=== PATIENT | male | born 1945 | race Caucasian/White ===

== ENCOUNTER 2017-05-16 14:53 | Inpatient (IN) | payer MEDICARE, OTHER ==
[~2017-05-16 14:53] MED LIST: ASPIRIN 325 MG TABLET PO SCH
[2017-05-16] MEDS ORDERED: NORMAL SALINE 1000 ML 1,000 ML IV ONE (15:16)
[2017-05-16 15:27] LABS: ABSOLUTE BASOPHILS # (AUTO) 0.1 10^3/uL (0.0-0.2); ABSOLUTE EOSINOPHILS # (AUTO) 0.1 10^3/uL (0.0-0.6); ABSOLUTE LYMPHOCYTES (AUTO) 2.5 10^3/uL (0.5-4.7); ABSOLUTE MONOCYTES (AUTO) 0.9 10^3/uL (0.1-1.4); ABSOLUTE NEUT (AUTO) 3.5 10^3/uL (1.7-8.2); BASOPHILS % (AUTO) 0.9 % (0-2); EOSINOPHILS % (AUTO) 1.9 % (0-6); HEMATOCRIT 38.6 % (37.9-51.0); HEMOGLOBIN 13.5 g/dL (13.5-17.0); HGB HCT DIFFERENCE 1.9; LYMPHOCYTES % (AUTO) 35.3 % (13-45); MEAN CORPUSCULAR HEMOGLOBIN 32.9 pg (27.0-33.4); MEAN CORPUSCULAR HGB CONC 34.9 g/dL (32.0-36.0); MEAN CORPUSCULAR VOLUME 94 fl (80-97); MONOCYTES % (AUTO) 13.1 % (3-13); RED BLOOD COUNT 4.09 10^6/uL (4.35-5.55); RED CELL DISTRIBUTION WIDTH 13.5 % (11.5-14.0); SEGMENTED NEUTROPHILS % (AUTO) 48.8 % (42-78); WHITE BLOOD COUNT 7.1 10^3/uL (4.0-10.5)
[2017-05-16 15:32] LABS: PROTHROMBIN TIME 12.5 SEC (11.4-15.4)
[2017-05-16 15:33] LABS: PARTIAL THROMBOPLASTIN TIME 30.8 SEC (23.5-35.8)
[2017-05-16] MEDS ORDERED: LORAZEPAM INJ 2 MG/1 ML VIAL IV ONE (15:37)
--- NOTE | 2017-05-16 15:40 | ER Document Report ---
ED General - General Chief Complaint: Dizziness Stated Complaint: DIZZINESS Time Seen by Provider: 05/16/17 15:10 Mode of Arrival: Ambulatory Information source: Patient Notes: 71-year-old male presents with sudden episode of dizziness tingling all throughout his body. Patient notes headache denies any fevers or chills denies any nausea vomiting or diarrhea there was an episode where patient laid himself down to the ground because he does not feel well TRAVEL OUTSIDE OF THE [place] IN LAST 30 DAYS: No - HPI Onset: Just prior to arrival Onset/Duration: Sudden Quality of pain: Achy Severity: Mild Pain Level: 1 Associated symptoms: Headache, Weakness Exacerbated by: Denies Relieved by: Denies Similar symptoms previously: No Recently seen / treated by doctor: No - Related Data Allergies/Adverse Reactions: No Known Allergies Allergy (Verified 05/16/17 14:57) Past Medical History - Social History Smoking Status: Never Smoker Cigarette use (# per day): No Chew tobacco use (# tins/day): No Smoking Education Provided: No Family History: Reviewed & Not Pertinent Musculoskeltal Medical History: Reports Hx Arthritis Past Surgical History: Reports: Hx Orthopedic Surgery - BL knees, Hx Tonsillectomy Review of Systems - Review of Systems Notes: REVIEW OF SYSTEMS: CONSTITUTIONAL : Denies fever, chills, or sweats. Denies recent illness. EENT: Denies eye, ear, throat, or mouth pain or symptoms. Denies nasal or sinus congestion or discharge. Denies throat, tongue, or mouth swelling or difficulty swallowing. CARDIOVASCULAR: Denies chest pain. Denies palpitations or racing or irregular heart beat. Denies ankle edema. RESPIRATORY: Denies cough, cold, or chest congestion. Denies shortness of breath, difficulty breathing, or wheezing. GASTROINTESTINAL: Denies abdominal pain or distention. Denies nausea, vomiting , or diarrhea. Denies blood in vomitus, stools, or per rectum. Denies black, tarry stools. Denies constipation. GENITOURINARY: Denies difficulty urinating, painful urination, burning, frequency, blood in urine, or discharge. MUSCULOSKELETAL: Denies back or neck pain or stiffness. Denies joint pain or swelling. SKIN: Denies rash, lesions or sores. HEMATOLOGIC : Denies easy bruising or bleeding. LYMPHATIC: Denies swollen, enlarged glands. NEUROLOGICAL: Admits to dizziness PSYCHIATRIC: Denies anxiety or stress. Denies depression, suicidal ideation, or homicidal ideation. ALL OTHER SYSTEMS REVIEWED AND NEGATIVE. Dictation was performed using [employer] voice recognition software PHYSICAL EXAMINATION: GENERAL: Well-appearing, well-nourished and in no acute distress. HEAD: Atraumatic, normocephalic. EYES: Pupils equal round and reactive to light, extraocular movements intact, sclera anicteric, conjunctiva are normal. ENT: Nares patent, oropharynx clear without exudates. Moist mucous membranes. NECK: Normal range of motion, supple without lymphadenopathy LUNGS: Breath sounds clear to auscultation bilaterally and equal. No wheezes rales or rhonchi. HEART: Tachycardic ABDOMEN: Soft, nontender, nondistended abdomen. No guarding, no rebound. No masses appreciated. Musculoskeletal: Normal range of motion, no pitting or edema. No cyanosis. NEUROLOGICAL: Cranial nerves grossly intact. Normal speech, normal gait. Normal sensory, motor exams PSYCH: Normal mood, normal affect. SKIN: Warm, Dry, normal turgor, no rashes or lesions noted. Physical Exam - Vital signs Vitals: Pulse Resp BP Pulse Ox 126 H 18 109/67 98 05/16/17 14:57 05/16/17 14:57 05/16/17 14:57 05/16/17 14:57 Course - Re-evaluation Re-evalutation: 05/16/17 15:39 Patient admits to subjective paresthesia all throughout his body, he is noted to be tachycardic upon arrival emergency T lab work ordered 05/16/17 22:40 Patient had imaging performed which noted no significant abnormality, however continued to have paresthesia as well as tachycardia, therefore I will admit the patient to the hospitalist service for further evaluation and care - Vital Signs Vital signs: Temp Pulse Resp BP Pulse Ox 98.2 F 66 18 118/75 98 05/16/17 21:34 05/16/17 21:34 05/16/17 21:01 05/16/17 21:34 05/16/17 21:34 - Laboratory Result Diagrams: 05/16/17 15:17 05/16/17 15:17 Laboratory results interpreted by me: 05/16/17 05/16/17 15:17 15:17 RBC 4.09 L Monocytes % 13.1 H Carbon Dioxide 21 L Creatine Kinase 47 L - Diagnostic Test Radiology reviewed: Image reviewed, Reports reviewed Discharge - Discharge Clinical Impression: Dizziness, Tachycardia, Paresthesia Condition: Stable Disposition: ADMITTED OBSERVATION Admitting Provider: Hospitalist Unit Admitted: [facility]
[2017-05-16 15:43] LABS: ALANINE AMINOTRANSFERASE 31 U/L (21-72); ALBUMIN 4.3 g/dL (3.5-5.0); ALKALINE PHOSPHATASE 111 U/L (38-126); ANION GAP 15 (5-19); ASPARTATE AMINO TRANSFERASE 22 U/L (17-59); BILIRUBIN,DIRECT 0.4 mg/dL (0.0-0.4); BILIRUBIN,TOTAL 1.2 mg/dL (0.2-1.3); BLOOD UREA NITROGEN 13 mg/dL (7-20); CALCIUM 9.9 mg/dL (8.4-10.2); CARBON DIOXIDE 21 mmol/L (22-30); CHLORIDE 103 mmol/L (98-107); CREATINE KINASE 47 U/L (55-170); CREATININE RESULT 0.97 mg/dL (0.52-1.25); GLUCOSE 109 mg/dL (75-110); POTASSIUM 3.8 mmol/L (3.6-5.0); TOTAL PROTEIN 6.7 g/dL (6.3-8.2)
--- NOTE | 2017-05-16 15:46 | EKG REPORT ---
SEVERITY:- ABNORMAL ECG - JUNCTIONAL TACHYCARDIA BORDERLINE ST DEPRESSION, DIFFUSE LEADS BORDERLINE PROLONGED QT INTERVAL : Confirmed by: Avelina Friedman MD 16-May-2017 15:45:27
--- NOTE | 2017-05-16 15:49 | RADIOLOGY REPORT (SQ) ---
EXAM DESCRIPTION: CHEST SINGLE VIEW COMPLETED DATE/TIME: 05/16/2017 3:41 pm REASON FOR STUDY: dizzy COMPARISON: None. EXAM PARAMETERS: NUMBER OF VIEWS: One view. TECHNIQUE: Single frontal radiographic view of the chest acquired. RADIATION DOSE: NA LIMITATIONS: None. FINDINGS: LUNGS AND PLEURA: No opacities, masses or pneumothorax. No pleural effusion. MEDIASTINUM AND HILAR STRUCTURES: No masses. Contour normal. HEART AND VASCULAR STRUCTURES: Heart normal in size. Normal vasculature. BONES: No acute findings. HARDWARE: None in the chest. OTHER: No other significant finding. IMPRESSION: NO ACUTE RADIOGRAPHIC FINDING IN THE CHEST. TECHNICAL DOCUMENTATION: JOB ID: [id number] [employer]- All Rights Reserved
--- NOTE | 2017-05-16 15:55 | RADIOLOGY REPORT (SQ) ---
EXAM DESCRIPTION: CT HEAD WITHOUT COMPLETED DATE/TIME: 05/16/2017 3:45 pm REASON FOR STUDY: dizzy COMPARISON: None. TECHNIQUE: Axial images acquired through the brain without intravenous contrast. Images reviewed wi th bone, brain and subdural windows. Images stored on PACS. All CT scanners at this facility use dose modulation, iterative reconstruction, and/or weight based d osing when appropriate to reduce radiation dose to as low as reasonably achievable (ALARA). [facility]: Dose Right [facility]: CareDose [facility]: Dose Right [facility]: Teradose 4D [facility]: Emotify RADIATION DOSE: CT Rad equipment meets quality standard of care and radiation dose reduction techniq ues were employed. CTDIvol: 64.6 mGy. DLP: 1163 mGy-cm. mGy. LIMITATIONS: None. FINDINGS: VENTRICLES: Normal size and contour. CEREBRUM: No masses. No hemorrhage. No midline shift. No evidence for acute infarction. Normal gra y/white matter differentiation. No areas of low density in the white matter. CEREBELLUM: No masses. No hemorrhage. No alteration of density. No evidence for acute infarction. EXTRAAXIAL SPACES: No fluid collections. No masses. ORBITS AND GLOBE: No intra- or extraconal masses. Normal contour of globe without masses. CALVARIUM: No fracture. PARANASAL SINUSES: No fluid or mucosal thickening. SOFT TISSUES: No mass or hematoma. OTHER: No other significant finding. IMPRESSION: NORMAL BRAIN CT WITHOUT CONTRAST. EVIDENCE OF ACUTE STROKE: NO. COMMENT: Quality ID # 436: Final reports with documentation of one or more dose reduction techniques (e.g., Automated exposure control, adjustment of the mA and/or kV according to patient size, use of iterative reconstruction technique) TECHNICAL DOCUMENTATION: JOB ID: [id number]- All Rights Reserved
[2017-05-16] MEDS ORDERED: ONDANSETRON HCL INJ/PF 4 MG/2 ML SDV IV ONE (15:57)
[2017-05-16 16:00] LABS: TROPONIN I < 0.012 ng/mL
--- NOTE | 2017-05-16 17:56 | RADIOLOGY REPORT (SQ) ---
EXAM DESCRIPTION: CTA CHEST COMPLETED DATE/TIME: 05/16/2017 5:35 pm REASON FOR STUDY: tachycardia, hypoemia COMPARISON: Chest film 05/16/2017 TECHNIQUE: CT scan of the chest performed using helical scanning technique with dynamic intravenous contrast injection. Images reviewed with lung, soft tissue and bone windows. Reconstructed coronal and sagittal MPR images reviewed. Additional 3 dimensional post-processing performed to develop Maximal Intensity Projection images (IL P). All images stored on PACS. All CT scanners at this facility use dose modulation, iterative reconstruction, and/or weight based d osing when appropriate to reduce radiation dose to as low as reasonably achievable (ALARA). [facility]: Dose Right [facility]: CareDose [facility]: Dose Right [facility]: Teradose 4D [facility]: [employer] CONTRAST TYPE AND DOSE: contrast/concentration: Isovue 370.00 mg/ml; Total Contrast Delivered: 62.0 ml; Total Saline Delivered: 70.0 ml Contrast bolus optimized for the thoracic aorta. RENAL FUNCTION: Creatinine 0.97 RADIATION DOSE: CT Rad equipment meets quality standard of care and radiation dose reduction techniq ues were employed. CTDIvol: 14.0 - 17.9 mGy. DLP: 2063 mGy-cm. . LIMITATIONS: None. FINDINGS: LUNGS AND PLEURA: Minimal bandlike bibasilar atelectasis. No fluffy alveolar infiltrates worrisome for edema or pneumonia. No pleural effusions. No pneumothorax. AORTA AND GREAT VESSELS: No aneurysm. No thoracic aortic aneurysm or dissection. HEART: No pericardial effusion. No significant coronary artery calcifications. PULMONARY ARTERIES: Contrast bolus not optimized for the pulmonary arteries. HILAR AND MEDIASTINAL STRUCTURES: No identified masses or abnormal nodes. Small hiatal hernia with f luid throughout the esophagus, mild esophageal wall thickening, likely due to reflux HARDWARE: None in the chest. UPPER ABDOMEN: No significant findings. Limited exam. THYROID AND OTHER SOFT TISSUES: No masses. No adenopathy. BONES: No acute or significant finding. 3D MIPS: Confirm above findings. OTHER: No other significant finding. IMPRESSION: NORMAL CTA OF THE CHEST. NO THORACIC AORTA ANEURYSM OR DISSECTION COMMENT: Quality ID # 436: Final reports with documentation of one or more dose reduction techniques (e.g., Automated exposure control, adjustment of the mA and/or kV according to patient size, use of iterative reconstruction technique) TECHNICAL DOCUMENTATION: JOB ID: [id number] [employer]- All Rights Reserved
--- NOTE | 2017-05-16 18:02 | RADIOLOGY REPORT (SQ) ---
EXAM DESCRIPTION: CTA ABDOMEN/PELVIS W WO COMPLETED DATE/TIME: 05/16/2017 5:35 pm REASON FOR STUDY: tachycardia, hypoemia COMPARISON: CT angio chest same date Chest films same date TECHNIQUE: CT scan of the abdominal aorta extending to the bilateral common femoral arteries perform ed with intravenous contrast using helical scanning technique with dynamic intravenous contrast injec tion. No oral contrast Images reviewed with lung, soft tissue, and bone windows. Reconstructed coronal and sagittal MPR imag es reviewed. All images stored on PACS. Advanced 3D imaging as volume rendering, MIPS, SSD performed? yes All CT scanners at this facility use dose modulation, iterative reconstruction, and/or weight based d osing when appropriate to reduce radiation dose to as low as reasonably achievable (ALARA). [facility]: Dose Right [facility]: CareDose [facility]: Dose Right [facility]: Teradose 4D [facility]: [employer] CONTRAST TYPE AND DOSE: 62 mL Isovue 370- low osmolar. RENAL FUNCTION: Creatinine 0.97 LIMITATIONS: None. FINDINGS: AORTA AND VESSELS: No aneurysm. No dissection. Renal arteries, SMA, celiac without stenosi s. Bilateral common iliac arteries, external iliac artery, common femoral arteries are widely patent . LUNG BASES: Small hiatal hernia. No nodules or infiltrates. LIVER: Normal size. No masses or dilated ducts. SPLEEN: Normal size. No focal lesions. PANCREAS: No masses. No significant calcifications. No adjacent inflammation or peripancreatic fluid collections. Pancreatic duct not dilated. GALLBLADDER: No identified stones by CT criteria. No inflammatory changes to suggest cholecystitis. ADRENAL GLANDS: No significant masses or asymmetry. RIGHT KIDNEY AND URETER: No mass, calculi or urinary tract obstruction. 2.7 cm right midpole renal c ortical cyst LEFT KIDNEY AND URETER: No mass, calculi or urinary tract obstruction. RETROPERITONEUM: No retroperitoneal adenopathy, hemorrhage or masses. BOWEL AND PERITONEAL CAVITY: No masses or inflammatory changes. No free fluid or peritoneal masses. Moderate stool throughout the colon. APPENDIX: Normal. ABDOMINAL WALL: No masses. No hernias. BONY STRUCTURES: Lower lumbar degenerative disc changes, 25% anterolisthesis of L5 over S1 from spond ylolysis PELVIS: No other significant finding. No adenopathy. No free fluid. Bladder unremarkable 3-D IMAGING: Confirms the above findings. IMPRESSION: NO ABDOMINAL AORTIC ANEURYSM, DISSECTION OR SIGNIFICANT STENOSIS. NO SIGNIFICANT FINDING S IN THE ABDOMEN. TECHNICAL DOCUMENTATION: JOB ID: [id number] Quality ID # [id number]: Final reports with documentation of one or more dose reduction techniques (e.g., Au tomated exposure control, adjustment of the mA and/or kV according to patient size, use of iterative reconstruction technique) 2010 [employer]- All Rights Reserved
[2017-05-16] MEDS ORDERED: ONDANSETRON 4 MG TAB.RAPDIS PO PRN (18:14)
--- NOTE | 2017-05-16 19:43 | HISTORY AND PHYSICAL E ---
History and Physical NAME: DONNELL NIEVES : 1945 AGE: 71Y ADMITTED: 05/16/2017 ROOM: ED20 CHIEF COMPLAINT: Dizziness. HISTORY OF THE PRESENT ILLNESS: The patient is a pleasant 71-year-old male who does not have any past medical history of any problem. The patient came to the emergency room today after he had a dizzy spell while he was in the kitchen. He did not pass out and following that he had numbness in his face. Denies any chest pain. He has some shortness of breath and nausea, but there is no vomiting. He had ringing in his ear, in the right ear, and he had episode of dizzy spell in the past but he did not come to the emergency room. He said he frequency but this last one it lasted longer, lasting around 20 minutes. There are no aggravating or alleviating factors. When he arrived to the emergency room his heart rate is in the 130s. An EKG showed junctional rhythm but cardiac exam was unremarkable. His blood pressure was relatively low it was 90 systolic. He is not on any medications other than Claritin. There is not any previous history of coronary artery disease or stroke. No history of ear infection. No difficulty swallowing. No paroxysmal nocturnal dyspnea or orthopnea, no edema, no fever, no chills. REVIEW OF SYSTEMS: Twelve systems are reviewed and negative except for the History of the Present Illness. PAST MEDICAL HISTORY: None. PAST SURGICAL HISTORY: None. MEDICATION: Claritin. ALLERGIES: No allergy to medication. FAMILY HISTORY: There is no family history of coronary artery disease or stroke. SOCIAL HISTORY: He never drank or smoked. He is and lives with his , Kirsten. PHYSICAL EXAMINATION: GENERAL: The patient looks well, not in distress, well-nourished. VITAL SIGNS: Blood pressure is 100/75, saturation was 100%, respiratory 12, heart rate is 89, afebrile. His heart rate was 126-130, now it has come back to 89. HEENT: Head is normocephalic, atraumatic. Pupils are round and reactive to light and accommodation bilaterally. Extraocular movements are intact. Ears: Tympanic membranes are intact. No discharge from the ears. No discharge from the nose. NECK: Supple. No increased JVD, no thyromegaly, and no lymphadenopathy. CARDIOVASCULAR: Regular rate, average. No murmur, no gallop. CHEST: No deformity, good air entry bilaterally. No wheezing, no crackles. ABDOMEN: No scar, no tenderness. Bowel sounds is active. No organomegaly. MUSCULOSKELETAL: No joint deformity or swelling. SKIN: There is no rash. VASCULAR: Peripheral arteries are palpable. NEUROLOGIC: The patient is awake, alert, oriented to time, place, and person. Cranial nerves are grossly intact from II-XII. HEMATOLOGIC/LYMPHOCYTIC: No anemia, no easy bruising. LABORATORY DATA: White blood cells 7.1, hemoglobin 15.5. Carbon dioxide 21, sodium 139, potassium 3.8. DIAGNOSTIC STUDIES: EKG; junctional rhythm. IMAGING STUDIES: CT scan of the head was normal. ASSESSMENT: 1. Dizziness. Differential diagnosis TIA versus cardiovascular event. 2. Abnormal EKG. EKG showed a junctional rhythm. 3. Hypotension. 4. Dehydration. 5. Mild metabolic acidosis. PLAN: We will admit the patient to telemetry, start him on IV fluids to increase his blood pressure. We will give him D5 normal saline at 125 mL per hour, aspirin 325 mg daily. We will get MRI of the brain, carotid ultrasound, echocardiogram, 3 sets of cardiac enzymes, lipid profile in the morning. Consult cardiology. EKG in the morning. CODE STATUS: Full code. TIME SPENT: One hour. DICTATING PHYSICIAN: WILLIAMS HANNON M.D. [id number] PHY#: [id number] ID: [id number] JOB#: [id number] ACCT: [id number] cc:WILLIAMS HANNON M.D. >
--- NOTE | 2017-05-16 20:31 | RADIOLOGY REPORT (SQ) ---
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 Images stored on PACS. CONTRAST TYPE AND DOSE: 15 mL Multihance. RENAL FUNCTION: GFR > 60. LIMITATIONS: None. FINDINGS: ANATOMY: No anomalies. Normal vascular flow voids. Pituitary fossa normal. CSF SPACES: Normal in size and contour. No hemorrhage. CEREBRUM: Sulci and gyri normal in size and contour. Normal white matter signal on FLAIR imaging. No evidence of hemorrhage, mass, or extraaxial fluid collection. No abnormal enhancement post contrast. POSTERIOR FOSSA: No signal alteration. No hemorrhage. No edema, masses, or mass effect. Internal reymundo tory canals, cerebellopontine angles, mastoids normal. No enhancing lesions. No abnormal enhancement post contrast. DIFFUSION IMAGING: Negative for acute or subacute infarction. ORBITS: No masses. Globes normal. PARANASAL SINUSES: No fluid levels. Mucosa normal. OTHER: No other significant finding. IMPRESSION: NORMAL MRI OF THE BRAIN WITHOUT AND WITH INTRAVENOUS GADOLINIUM CONTRAST. EVIDENCE OF ACUTE STROKE: NO. TECHNICAL DOCUMENTATION: JOB ID: [id number] [employer]- All Rights Reserved
[2017-05-16] MEDS: FAMOTIDINE 20 MG TABLET PO SCH (23:14)
[2017-05-16] MEDS ORDERED: ASPIRIN 325 MG TABLET PO ONE (23:15)
[2017-05-16] MEDS: DEXTROSE 5%-NORMAL SALINE 1,000 ML IV PRN (23:15)
[2017-05-17 03:42] LABS: ABSOLUTE EOSINOPHILS # (AUTO) 0.1 10^3/uL (0.0-0.6); ABSOLUTE MONOCYTES (AUTO) 0.7 10^3/uL (0.1-1.4); ABSOLUTE NEUT (AUTO) 2.1 10^3/uL (1.7-8.2); BASOPHILS % (AUTO) 0.7 % (0-2); HEMATOCRIT 30.9 % (37.9-51.0); HGB HCT DIFFERENCE 2.1; LYMPHOCYTES % (AUTO) 41.9 % (13-45); MEAN CORPUSCULAR HEMOGLOBIN 33.7 pg (27.0-33.4); MEAN CORPUSCULAR HGB CONC 35.8 g/dL (32.0-36.0); MEAN CORPUSCULAR VOLUME 94 fl (80-97); MONOCYTES % (AUTO) 13.5 % (3-13); RED BLOOD COUNT 3.27 10^6/uL (4.35-5.55); RED CELL DISTRIBUTION WIDTH 13.3 % (11.5-14.0); SEGMENTED NEUTROPHILS % (AUTO) 41.9 % (42-78); WHITE BLOOD COUNT 4.9 10^3/uL (4.0-10.5)
[2017-05-17 03:49] LABS: ALANINE AMINOTRANSFERASE 30 U/L (21-72); ALBUMIN 3.2 g/dL (3.5-5.0); ALKALINE PHOSPHATASE 72 U/L (38-126); ANION GAP 8 (5-19); ASPARTATE AMINO TRANSFERASE 18 U/L (17-59); BILIRUBIN,DIRECT 0.3 mg/dL (0.0-0.4); BILIRUBIN,TOTAL 0.8 mg/dL (0.2-1.3); BLOOD UREA NITROGEN 17 mg/dL (7-20); CALCIUM 8.5 mg/dL (8.4-10.2); CARBON DIOXIDE 26 mmol/L (22-30); CHLORIDE 107 mmol/L (98-107); CHOLESTEROL 152.78 mg/dL (0-200); CREATINE KINASE 31 U/L (55-170); CREATININE RESULT 0.86 mg/dL (0.52-1.25); Direct HDL 54 mg/dL (>40); GLUCOSE 107 mg/dL (75-110); MAGNESIUM 1.9 mg/dL (1.6-2.3); POTASSIUM 3.9 mmol/L (3.6-5.0); TOTAL PROTEIN 5.4 g/dL (6.3-8.2); TRIGLYCERIDES 54 mg/dL (<150)
[2017-05-17 04:01] LABS: DIRECT LDL 85 mg/dL (<100)
[2017-05-17 04:12] LABS: FREE T3 2.74 pg/mL (2.77-5.27)
[2017-05-17 04:25] LABS: THYROID STIMULATING HORMONE 1.7 uIU/mL (0.47-4.68)
[2017-05-17] MEDS: DEXTROSE 5%-NORMAL SALINE 1,000 ML IV PRN (08:34)
[2017-05-17] MEDS ORDERED: INFLUENZA ADLT QUAD (36MOS+) 2017-18 VAC 0.5 ML SYR IM PRN (08:53)
[2017-05-17] MEDS: FAMOTIDINE 20 MG TABLET PO SCH (09:33)
[2017-05-17] MEDS ORDERED: DOCUSATE SODIUM 100 MG CAPSULE PO SCH (10:00)
[2017-05-17] MEDS ORDERED: ENOXAPARIN SODIUM INJ 40 MG/0.4 ML DISP.SYRIN SUBCUT SCH (10:00)
[2017-05-17] MEDS ORDERED: ASPIRIN 325 MG TABLET PO SCH (10:00)
--- NOTE | 2017-05-17 10:35 | PROGRESS NOTE E ---
Progress Note NAME: DONNELL NIEVES : 1945 AGE: 71Y DATE: 05/17/2017 ROOM: 324 SUBJECTIVE: The patient is a pleasant 71-year-old male who has no past medical history of any medical condition, no diabetes or heart disease, no hypertension, who was admitted with dizziness yesterday, admission to rule out NE. He had a CT angiogram, and it was unremarkable. The patient is feeling better today. MRI was normal.echo still pending, and he was dehydrated, started on IV fluids. OBJECTIVE: GENERAL: Patient lying in bed, comfortable, not in distress. VITAL SIGNS: Temperature 98.1, heart rate 62, blood pressure 121/67, respiratory rate 17, saturation 99% on room air. HEENT: Head normocephalic, atraumatic. Pupils round, reactive to light and accommodation bilaterally. Extraocular movements intact. Ears: Tympanic membranes intact bilaterally. No discharge from the ears. No discharge from the nose. NECK: Supple. No increased JVD. No thyromegaly. No lymphadenopathy. CARDIOVASCULAR: Normal S1, S2. Regular rate and rhythm. No murmur, no gallops. RESPIRATORY: Lungs clear. ABDOMEN: Soft, nontender. MUSCULOSKELETAL: No edema. NEUROLOGICAL EXAM: Awake, alert. SKIN: No rash. LABORATORY: White blood count 4.9, hemoglobin 11. Sodium 141, potassium 3.9, creatinine 0.8. ASSESSMENT: 1. DIZZINESS. Differential diagnosis includes TIA versus cardiovascular event. 2. ABNORMAL EKG. EKG showed sinus tachycardia rhythm; hypertension; dehydration, on IV fluid; mild acidosis. The patient had a normal CT scan and MRI. PLAN: Waiting for echocardiogram and Doppler ultrasound. Continue aspirin. Waiting also for a cardiology consult. DISPOSITION: Probably discharge home later today. DICTATING PHYSICIAN: WILLIAMS HANNON M.D. [id number] PHY#: [id number] ID: [id number] JOB#: [id number] ACCT: [id number] cc: > MTDD
--- NOTE | 2017-05-17 10:59 | RADIOLOGY REPORT (SQ) ---
EXAM DESCRIPTION: CAROTID DOPPLER COMPLETED DATE/TIME: 05/17/2017 10:47 am REASON FOR STUDY: Dizziness D50.0 IRON DEFICIENCY ANEMIA SECONDARY TO BLOOD LOSS (CHRONI E02 SUBCL INICAL IODINE-DEFICIENCY HYPOTHYROIDISM E78.2 MIXED HYPERLIPIDEMIA COMPARISON: None. TECHNIQUE: Grayscale ultrasound, Doppler velocity and spectra, and color Doppler images acquired of the extra-cranial carotid and vertebral arteries. Images stored on PACS. LIMITATIONS: None. FINDINGS: RIGHT CAROTID CCA Velocities: Within normal limits. ICA Velocities Peak systolic 1.19 m/s. End diastolic 0.33 m/s. Proximal ICA/CCA peak systolic ratio 1.3. Spectra normal. No significant plaque. LEFT CAROTID CCA Velocities: Within normal limits. ICA Velocities Peak systolic 1.05 m/s. End diastolic 0.29 m/s. Proximal ICA/CCA peak systolic ratio 1.1. Spectra normal. No significant plaque. VERTEBRAL ARTERIES: Antegrade flow. Normal waveforms. SUBCLAVIAN ARTERIES: No finding. OTHER: No other significant finding. IMPRESSION: NO HEMODYNAMICALLY SIGNIFICANT STENOSIS. COMMENT: Quality ID #[id number]: Velocity criteria are extrapolated from the diameter data as defined by t he Society of Radiologists in Ultrasound Consensus Conference. Radiology 2003: 229; 340-346. TECHNICAL DOCUMENTATION: JOB ID: [id number] [employer]- All Rights Reserved
--- NOTE | 2017-05-17 13:30 | XCELERA REPORT ---
[address] [address] Transthoracic Echocardiogram Report Name: DONNELL NIEVES Age: 71 yrs Gender: Male : 1945 Patient Status: Inpatient Patient Location: [address] [place] [address] Study Date: 05/17/2017 09:55 AM Height: 72 in Weight: 206 lb BSA: 2.2 m2 Procedure: A complete two-dimensional transthoracic echocardiogram was performed (2D, M-mode, spectral and color flow Doppler). The study was technically adequate with some images being suboptimal in quality. Reason For Study: Syncope Ordering Physician: WILLIAMS HANNON Performed By: Lexie Caceres Interpretation Summary The left ventricular ejection fraction is normal. There is mild concentric left ventricular hypertrophy. The left ventricle is grossly normal size. Doppler measurements suggest pseudonormalized left ventricular relaxation, which is associated with grade II/IV or mild to moderate diastolic dysfunction Wall motion cannot be accurately commented on, but no definite regional wall motion abnormalities noted. The right ventricular systolic function is normal. The left atrial size is normal. The right atrium is mildly dilated. There is a trace amount of mitral regurgitation There is no mitral valve stenosis. There is a trace to mild amount of aortic regurgitation There is no aortic valve stenosis There is a trace or physiologic amount of tricuspid regurgitation Tricuspid regurgitation jet envelope not well defined to measure RV systolic pressure accurately. The aortic root is not well visualized. The inferior vena cava was not well visualized There is no pericardial effusion. MMode/2D Measurements & Calculations RVDd: 4.2 cm LVIDd: 3.0 cm FS: 45.9 % Ao root diam: 3.6 cm IVSd: 1.1 cm LVIDs: 1.6 cm EDV(Teich): 34.1 ml LVPWd: 1.1 cm ESV(Teich): 7.2 ml Ao root area: 10.4 cm2 EF(Teich): 78.8 % LA dimension: 2.7 cm Doppler Measurements & Calculations MV E max alex: MV P1/2t max alex: Ao V2 max: AI max alex: 84.9 cm/sec 85.4 cm/sec 139.6 cm/sec 369.2 cm/sec MV A max alex: MV P1/2t: 66.9 msec Ao max PG: AI max P.9 cm/sec 7.8 mmHg 54.5 mmHg MV E/A: 0.99 MVA(P1/2t): 3.3 cm2 AI dec slope: MV dec slope: 373.8 cm/sec2 140.7 cm/sec2 AI P1/2t: 768.5 msec LV V1 max PG: PA V2 max: TR max alex: 4.7 mmHg 100.7 cm/sec 214.5 cm/sec LV V1 max: PA max P.1 mmHg TR max P.1 cm/sec 18.4 mmHg Left Ventricle The left ventricle is grossly normal size. There is mild concentric left ventricular hypertrophy. The left ventricular ejection fraction is normal. Doppler measurements suggest pseudonormalized left ventricular relaxation, which is associated with grade II/IV or mild to moderate diastolic dysfunction. Wall motion cannot be accurately commented on, but no definite regional wall motion abnormalities noted. Right Ventricle The right ventricle is moderately dilated. There is normal right ventricular wall thickness. The right ventricular systolic function is normal. Atria The right atrium is mildly dilated. The left atrial size is normal. Interarterial septum not well visualized and not well dopplered. Cannot comment on ASD/PFO presence. Mitral Valve The mitral valve is grossly normal. There is no mitral valve stenosis. There is a trace amount of mitral regurgitation. Aortic Valve The aortic valve is not well visualized secondary to technical limitations. There is no aortic valve stenosis. There is a trace to mild amount of aortic regurgitation. Tricuspid Valve The tricuspid valve is not well visualized secondary to technical limitations. There is no tricuspid stenosis. There is a trace or physiologic amount of tricuspid regurgitation. Tricuspid regurgitation jet envelope not well defined to measure RV systolic pressure accurately. Pulmonic Valve The pulmonic valve is not well visualized. Great Vessels The aortic root is not well visualized. The inferior vena cava was not well visualized. Effusions There is no pericardial effusion. : WILLIAMS HANNON > Oniel Card
[2017-05-17 13:49] VITALS: BP 118/75
--- NOTE | 2017-05-17 14:28 | DISCHARGE SUMMARY E ---
Discharge Summary NAME: DONNELL NIEVES : 1945 AGE: 71Y ADMITTED: 05/16/2017 DISCHARGED: 05/17/2017 CONSULTATION: Cardiology consult. ADMISSION DIAGNOSES: 1. Dizziness. 2. Sinus tachycardia. 3. TIA versus stroke. 4. Abnormal EKG. 5. Mild metabolic acidosis. DISCHARGE DIAGNOSES: 1. Dizziness resolved. 2. Abnormal EKG. 3. Hypotension resolved. 4. Dehydration resolved. IMAGING: CT scan of the head was unremarkable. CTA chest and abdomen was unremarkable. No PE. Carotid ultrasound was normal. MRI was normal. Echocardiogram is pending. HOSPITAL COURSE: The patient is a pleasant 71-year-old male who does not have any past medical history of any problems. The patient was admitted with dizziness, numbness in his face and he was admitted to rule out stroke. He had TIA symptoms versus stroke and also had tinnitus, vertigo, and nausea but there was no vomiting. The symptoms lasted 20 minutes. Had difficulty breathing but there was no chest pain. The patient had 3 sets of cardiac enzymes and were unremarkable. EKG showed sinus tachycardia. He had negative cardiac enzymes. CT scan of the head was normal. MRI was normal. Carotid ultrasound was normal. Echo was ordered and still pending. The patient was evaluated by Cardiology. Dr. Card saw the patient. He recommended Toprol XL 25 mg and recommended to follow him in the office and he will order Holter monitoring in the office. The patient is stable today to be discharged home. PHYSICAL EXAMINATION UPON DISCHARGE: GENERAL: The patient is lying in bed, comfortable. Not in distress. VITALS SIGNS: Blood pressure is 118/62, heart rate 77, temperature 98.6. HEENT: Head normocephalic, atraumatic. Pupils round and reactive to light and accommodation bilaterally. Extraocular movements intact. Ears: Tympanic membranes intact bilaterally. No discharge from the ears. No discharge from the nose. NECK: Supple. No increased JVD. No thyromegaly. No lymphadenopathy. CARDIOVASCULAR: Normal S1, S2. Regular rate and rhythm. No murmur. No gallop. RESPIRATORY: Lungs are clear. ABDOMEN: Soft. MUSCULOSKELETAL: No edema. NEUROLOGIC: Awake, alert. SKIN: No rash. DISCHARGE INSTRUCTIONS: Discharge patient home. DIET: Cardiac diet. ACTIVITY: As tolerated. FOLLOWUP: Follow up with Dr. Card in 1 week. MEDICATIONS: Toprol XL 25 mg daily. DICTATING PHYSICIAN: WILLIAMS HANNON M.D. [id number] PHY#: [id number] ID: [id number] JOB#: [id number] ACCT: [id number] cc:WILLIAMS HANNON M.D. >
--- NOTE | 2017-05-17 14:43 | EKG REPORT ---
SEVERITY:- NORMAL ECG - SINUS RHYTHM : Confirmed by: Avelina Friedman MD 17-May-2017 14:42:33
--- NOTE | 2017-05-17 14:44 | PDOC CONSULTATION ---
Consultation Consult Date: 05/17/17 Attending physician:: ARMEN PACK Consult reason:: Syncope and near syncope History of Present Illness Admission Date/PCP: 05/16/17 17:59 MICHELLE VARELA MD Patient complains of: Near syncope History of Present Illness: DONNELL NIEVES is a 71 year old male, without any significant past medical history who was admitted through the emergency room following an episode of near syncope. Patient claims that he was washing the dishes while his was sitting of the table for dinner. He claims that he felt dizzy, weak and staggered to another room and subsequently his legs give away and he fell. Patient noticed that he was not pale but he was nauseous. There was no diaphoresis noted. Patient also complained of some transient chest pain. In the emergency room he was noted to be tachycardic. Patient was subsequently admitted. He did have a 2D echo which was reviewed. A carotid duplex was reviewed. Patient did have a CTA of the abdomen/pelvis and CTA of the chest/ abdomen which apparently were negative for any significant findings. I have been asked to evaluate patient because of cardiac dysrhythmia and syncope and near syncope complaints. Patient denied any history of syncope or near syncope in the past. Denied any history of seizure disorder, strokes or mini strokes. Patient describes history of difficulty staying asleep. Is also noted to be fatigued and tired during the day. He has multiple nocturnal awakening. Patient also has history of snoring. Past Medical History Medical History: None Cardiac Medical History: Reports: None Musculoskeltal Medical History: Reports: Arthritis Past Surgical History Past Surgical History: Reports: Orthopedic Surgery - BL knees, Tonsillectomy Social History Information Source: Patient Smoking Status: Never Smoker Last Time Smoked: 1981 Frequency of Alcohol Use: None Hx Recreational Drug Use: No Drugs: None Hx Prescription Drug Abuse: No - Advance Directive Resuscitation Status: Full Code Surrogate healthcare decision maker:: Patient's is the surrogate decision-maker Family History Family History: Reviewed & Not Pertinent Parental Family History Reviewed: Yes Children Family History Reviewed: Yes Sibling(s) Family History Reviewed.: Yes Medication/Allergy Home Medications: Metoprolol Succinate [Toprol Xl 25 mg Tab.sr] 25 mg PO DAILY #30 tab.sr.24h Allergies/Adverse Reactions: No Known Allergies Allergy (Verified 05/16/17 14:57) Review of Systems Review of Systems: Please see history of present illness and past medical history as wall. Constitutional: No fever or chills reported. Head : No recent chronic headaches, recent head injury. Eyes: No recent eye pain, diplopia, redness, discharge, acute visual changes. Ears: No recent chronic ear pain, acute hearing loss, ear discharge. Oral cavity: No recent ulcerations, bleeding, oral cavity discomfort. Neck: No recent acute neck pain reported. Hematologic: No recent easy bruising or bleeding or hematologic malignancy reported. Lymphatic: No recent lymphatic malignancy, chronic lymphadenopathy reported yet Cardiovascular system review: See history of present illness. Respiratory system review: No recent chronic cough, hemoptysis, blood clots in the lungs reported. Mild Shortness of breath on exertion Gastrointestinal system review: Negative for any recent acute or chronic abdominal pain, hematemesis, melena, recent change in bowel habits. Genitourinary system review: No recent acute or chronic hematuria, flank pain, UTI etc. reported. Skin system review: Negative for any recent abnormal bruising, no rash, no pruritus reported. Neurologic: No prior history of strokes, mini strokes, seizure disorder. Psychologic: No history of major psychosis or major depression reported. Musculoskeletal: Minor aches and pains reported. No acute joint swelling reported. Endocrine: No recent polyuria, polydipsia, recent heat or cold intolerance. Physical Exam Vital Signs: Temp Pulse Resp BP Pulse Ox 98.6 F 64 20 118/75 92 05/17/17 13:48 05/17/17 13:48 05/17/17 13:48 05/17/17 13:48 05/17/17 13:48 Intake & Output 05/16/17 05/17/17 05/18/17 06:59 06:59 06:59 Intake Total 1355 820 Output Total 0 Balance 1355 820 Weight 94.5 kg Exam: GENERAL: well-nourished and in no acute distress. Alert and oriented x3 HEAD: Atraumatic, normocephalic. EYES: Pupils equal round and reactive to light, extraocular movements intact, sclera anicteric, conjunctiva are normal. ENT: TMs normal, nares patent, oropharynx clear without exudates. Moist mucous membranes. No oral ulcerations or bleeding gums noted NECK: supple without lymphadenopathy. Trachea is central. No cervical or axillary lymphadenopathy noted. Carotids are 2+, JVD WNL LUNGS: Respiration seems nonlabored, no significant accessory muscle action noted. Breath sounds clear to auscultation bilaterally and equal noted. No wheezes rales or rhonchi noted. No significant dullness noted on percussion. CHEST: Palpation of the chest wall shows no significant chest wall tenderness. No other significant abnormalities noted. HEART: Holly BRICK TENDER, No PSH, 1/6 DUANE aortic area, 1/6 nuñez systolic murmur mitral area, no rubs, no gallops. ABDOMEN: Soft, no significant tenderness appreciated, normoactive bowel sounds. No guarding, no rebound. No rigidity noted . No masses appreciated. EXTREMITIES: Pedal pulses are 1-2+, no calf tenderness noted. No clubbing or cyanosis.trace to 1+ pedal edema noted NEUROLOGICAL: Focused neurological exam showed no significant neurologic deficit. Normal speech, no focal weakness appreciated. PSYCH: Normal mood, normal affect. Judgment and insight within normal limits. SKIN: No significant ecchymosis, rash, ulcerations or signs of pruritus noted. MUSCULOSKELETAL EXAM: No significant joint swelling noted. Results Laboratory Results: 05/17/17 03:20 05/17/17 03:20 05/17/17 05/17/17 05/17/17 03:20 03:20 03:20 WBC 4.9 RBC 3.27 L Hgb 11.0 L D Hct 30.9 L MCV 94 MCH 33.7 H MCHC 35.8 RDW 13.3 Plt Count 186 Seg Neutrophils % 41.9 L Lymphocytes % 41.9 Monocytes % 13.5 H Eosinophils % 2.0 Basophils % 0.7 Absolute Neutrophils 2.1 Absolute Lymphocytes 2.0 Absolute Monocytes 0.7 Absolute Eosinophils 0.1 Absolute Basophils 0.0 Sodium 141.0 Potassium 3.9 Chloride 107 Carbon Dioxide 26 Anion Gap 8 BUN 17 Creatinine 0.86 Est GFR ( Amer) > 60 Est GFR (Non-Af Amer) > 60 Glucose 107 Calcium 8.5 Phosphorus 4.0 Magnesium 1.9 Total Bilirubin 0.8 AST 18 ALT 30 Alkaline Phosphatase 72 Total Protein 5.4 L Albumin 3.2 L Triglycerides 54 Cholesterol 152.78 LDL Cholesterol Direct 85 VLDL Cholesterol 11.0 HDL Cholesterol 54 TSH 1.70 Free T4 1.07 Free T3 pg/mL 2.74 L 1105/16/17 05/17/17 21:17 21:17 03:20 Creatine Kinase 37 L Troponin I 0.061 0.081 05/17/17 05/17/17 03:20 09:25 Creatine Kinase 31 L Troponin I 0.058 EKG Comments: Admission twelve-lead EKG suggest AVNRT with retrograde P waves in inferior leads. No acute ST segment changes noted Impressions: Head MRI 05/16/17 00:00 IMPRESSION: NORMAL MRI OF THE BRAIN WITHOUT AND WITH INTRAVENOUS GADOLINIUM CONTRAST. EVIDENCE OF ACUTE STROKE: NO. Chest X-Ray 05/16/17 15:15 IMPRESSION: NO ACUTE RADIOGRAPHIC FINDING IN THE CHEST. Head CT 05/16/17 15:15 IMPRESSION: NORMAL BRAIN CT WITHOUT CONTRAST. EVIDENCE OF ACUTE STROKE: NO. Abdomen/Pelvis CTA 05/16/17 16:18 IMPRESSION: NO ABDOMINAL AORTIC ANEURYSM, DISSECTION OR SIGNIFICANT STENOSIS. NO SIGNIFICANT FINDINGS IN THE ABDOMEN. Chest/Abdomen CTA 05/16/17 16:18 IMPRESSION: NORMAL CTA OF THE CHEST. NO THORACIC AORTA ANEURYSM OR DISSECTION Carotid Doppler Study 05/17/17 00:00 IMPRESSION: NO HEMODYNAMICALLY SIGNIFICANT STENOSIS. Assessment & Plan - Diagnosis (1) SVT (supraventricular tachycardia) Is this a current diagnosis for this admission?: Yes (2) Near syncope Is this a current diagnosis for this admission?: Yes (3) Sleep disorder Is this a current diagnosis for this admission?: Yes (4) Abnormal echocardiogram Is this a current diagnosis for this admission?: Yes (5) Chest pain Qualifiers: Chest pain type: unspecified Qualified Code(s): R07.9 - Chest pain, unspecified Is this a current diagnosis for this admission?: Yes - Notes Notes: Supraventricular tachycardia: This is the best interpretation of the EKG. Agree with beta-duran therapy. This was actually recommended to the hospitalist. Patient would benefit from a event monitor as an outpatient. A 2D echo was reviewed. Near syncope: This is most likely related to supraventricular tachycardia. Further evaluation as an outpatient with event monitor. Sleep disorder: Patient will benefit from a sleep study. This was explained to the patient and his . Untreated sleep apnea does increase risk of atrial flutter fibrillation and other cardiac dysrhythmia. Abnormal echocardiogram: Patient on echocardiogram is noted to have an enlarged right ventricle. CTA was negative for pulmonary embolism or any other acute pathology. Believe that patient will benefit from further evaluation as an outpatient regarding this. Chest pain: Most likely related to SVT. However at patient age, patient could have underlying CAD. Will recommend a stress test and believe this can be arranged as an outpatient. Patient has been chest pain-free since admission. He does want to be discharged. Patient informed that coronary artery disease could be missed. - Time Time Spent: 50 to 70 Minutes - CODE STATUS was discussed, patient remains full code. Surrogate decision-maker patient spouse. Multiple medical problems were addressed. More than 50% of the time spent coordinating care, discussing management plans with involved caregivers. Management plans discussed with involved personnels. Medical decision making was of moderate to high complexity , patient's has multiple comorbidities. Medications reviewed and adjusted accordingly: Yes
[2017-05-18] MEDS ORDERED: METOPROLOL SUCCINATE 25 MG TAB.SR.24H PO SCH (10:00)
== END 2017-05-17 14:21 | disposition home or self-care (01) | DRG 149 ==
LOC: ER 14:53 → EH 17:59 → UNDOADMOB 17:59 → OBSVTOIN 18:14 → 3W 20:51
PROVIDERS: ADMIT Internal Medicine; ATTEND Internal Medicine
DX: R42 Dizziness and giddiness (principal); E87.2 Acidosis; R94.31 Abnormal electrocardiogram [ECG] [EKG]; E86.0 Dehydration; I95.9 Hypotension, unspecified; H93.19 Tinnitus, unspecified ear; M19.90 Unspecified osteoarthritis, unspecified site; Z79.899 Other long term (current) drug therapy
CPT/HCPCS: 36415; 70450; 70553; 71010; 71275; 74174; 80053; 80061; 82550; 82553; 83735; 84100; 84439; 84443; 84481; 84484; 85025; 85610; 85730; 90686; 93005; 93010; 93306; 93880; 96361; 96374; 96375; 99285; A9577; J2060; J2405; J7030

== ENCOUNTER 2020-02-18 10:45 | Day surgery (SDC) | payer OTHER ==
[~2020-02-18 10:45] MED LIST changes: -ASPIRIN 325 MG TABLET PO SCH; +CHONDR SU A NA/HYALUR INTRAOC KIT (SURGICARE) ONE; +DORZOLAMIDE HCL 2%/TIMOLOL MALEAT 0.5% OPH SOLN 10 ML OD PRN; +EPINEPHRINE INJ/PF 1 MG/1 ML AMPULE ONE; +KETOROLAC TROMETHAMINE 0.45% 4 DROP/0.4 ML DROPERETTE OD PRN; +LIDOCAINE 1%/PHENYLEPHRINE 1.5% 0.8 ML SYRINGE ONE; +PREDNISOLONE ACETATE 1% OPH SUSP 5 ML OD PRN; +TRYPAN BLUE 0.06 % OPH SOLN 0.5 ML DISP.SYRIN ONE
[2020-02-18] MEDS: TROPICAMIDE 1% OPH SOLN 15 ML OD PRN ×3 (11:30→11:53)
[2020-02-18] MEDS: CYCLOPENTOLATE 0.2%/PHENYLEPHRINE 1% OPH SOLN 2 ML OD PRN ×3 (11:30→11:53)
[2020-02-18] MEDS: BESIFLOXACIN HCL 0.6% OPH SUSP 5 ML BOTTLE OD PRN ×3 (11:30→12:22)
[2020-02-18] MEDS: TETRACAINE HCL 0.5% OPH SOLN 4 ML OD PRN ×3 (11:30→12:02)
[2020-02-18] MEDS ORDERED: MIDAZOLAM 2 MG/2 ML INJ ONE (11:48)
[2020-02-18] MEDS ORDERED: FENTANYL CITRATE INJ/PF 100 MCG/2 ML AMPUL ONE (11:49)
--- NOTE | 2020-02-18 13:05 | Operative Report ---
Operative Report-[facility] Operative Report: DATE OF SURGERY: 02/18/2020 PREOPERATIVE DIAGNOSIS: Cataract, right eye POSTOPERATIVE DIAGNOSIS: Cataract, right eye OPERATION: Cataract extraction with insertion of an IOL of the right eye. Intraocular Lens Model: [21.0 sn60wf] Reason for surgery was difficulty seeing the computer SURGEON: Daron Duarte MD ANESTHESIA: Topical PROCEDURE: After obtaining appropriate consent, the patient's right eye was prepped and draped in a sterile fashion as well as the surgeon in the sterile manner and cataract surgery was started. First a paracentesis blade was used to make a side-port incision. Viscoelastic was used to inflate the anterior chamber. Next a 2.4 mm incision was made with a 2.4 mm blade, clear corneal temporarily. A continuous capsulorrhexis was made using a cystotome and Utrata forceps. Following this hydrodissection was carried out to make the thalia fully loose and mobile and it was rotated. Following this, a divide and conquer technique was used to phacoemulsify the thalia. The remaining cortex was removed with an irrigation/aspiration. Provisc was instilled into the capsular bag to inflate the bag. The intraocular lens was placed. The remaining viscoelastic material was removed with irrigation/aspiration. Following this, the incision was found to be watertight. Besivance and Cosopt was instilled into the eye and a protective shield was placed over the eye. The patient was reurned to the postoperative recovery in a stable condition.
== END 2020-02-18 13:05 | disposition home or self-care (01) ==
LOC: SC 10:45
PROVIDERS: ATTEND Internal Medicine
DX: H25.89 Other age-related cataract (principal); Z96.1 Presence of intraocular lens
CPT/HCPCS: 66984; V2632; J2250; J3490 ×3; J0171; J3010